=== PATIENT | male | born 1995 | race African-American/Black ===

== ENCOUNTER 2018-11-27 12:55 | Emergency (ER) | payer MEDICAID ==
[~2018-11-27] VITALS: Ht 188 cm; Wt 116.0 kg
[2018-11-27] MEDS ORDERED: ACETAMINOPHEN 500MG TABLET PO ONE (14:45)
[2018-11-27 16:22] VITALS: BP 140/80
== END 2018-11-27 16:22 | disposition home or self-care (01) ==
LOC: ER 13:07
DX: S63.696A Other sprain of right little finger, initial encounter (principal); M79.644 Pain in right finger(s); W22.8XXA Striking against or struck by other objects, initial encounter; Y93.89 Activity, other specified; Y92.89 Other specified places as the place of occurrence of the external cause; Y99.8 Other external cause status
CPT/HCPCS: 73140; 99283

== ENCOUNTER 2022-08-28 23:50 | Emergency (ER) | payer MEDICAID, MEDICARE, OTHER ==
[~2022-08-28] VITALS: Ht 190.5 cm; Wt 116.0 kg
[2022-08-29 00:21] VITALS: BP 133/82; PULSE 70; RESP 17; TEMP 98.7; O2SAT 98
== END 2022-08-29 02:45 | disposition home or self-care (01) ==
LOC: ER 23:50
DX: S39.012A Strain of muscle, fascia and tendon of lower back, initial encounter (principal); M25.561 Pain in right knee; V49.9XXA Car occupant (driver) (passenger) injured in unspecified traffic accident, initial encounter; Y93.9 Activity, unspecified; Y92.89 Other specified places as the place of occurrence of the external cause; Y99.8 Other external cause status
CPT/HCPCS: 71045; 99283